=== PATIENT | female | born 1955 | race Hispanic/Latino ===

== ENCOUNTER 2023-06-27 11:27 | Emergency (ER) | payer OTHER ==
--- OUTSIDE RECORDS SUMMARY | 2023-06-27 11:30 | XMS REPORT | Continuity of Care Document ---
:1955 Author Organization [facility] t Address [address] [facility] [place] [address] Care Team Providers Name Role Phone EDITH SPARKS Primary Care Physician Unavailable Edith Sparks Attending Clinician Unavailable MARVIN MIRANDA Attending Clinician Unavailable Marvin Miranda MD Attending Clinician RADIOLOGY Attending Clinician Unavailable Radiology Attending Clinician Unavailable CE PINTO Attending Clinician Unavailable Ce Pinto MD Attending Clinician [phone] Doctor Unassigned, Jolly Attending Clinician Unavailable Melissa Narvaez Attending Clinician Unavailable MELISSA NARVAEZ Attending Clinician Unavailable Melissa Narvaez MD Attending Clinician Gustavo Martin MD Attending Clinician GUSTAVO MARTIN Attending Clinician Unavailable EMILY BERMAN Admitting Clinician Unavailable CE PINTO Admitting Clinician Unavailable EDITH SPARKS Admitting Clinician Unavailable KNOW, DOES_NOT Admitting Clinician Unavailable Payers Payer Name Policy Type Policy Number Effective Date Expiration Date S yari [facility] [id number] 2020 [place] 00:00:00 [place] [id number] 2020 [place] 00:00:00 [place] [id number] 2019 [facility] y[facility] ing Medicare 00:00:00 [place] [id number] 2019 Common Sp yeni ing Medicare 00:00:00 [facility] MEDICARE PART A [id number] 2020 \\T\\ B 00:00:00 Problems Condition Condition Condition Status Onset Resolution Last Treating Co mments Source Name Details Category Date Date Treatment Clinician Date [id number] Paresthesi Problem Co mmon a of both Spirit hands [facility] [id number] Mixed Problem Common hyperlipid Spirit emia [facility] [id number] GERD Problem Common without Spirit esophagiti - [facility] [id number] Essential Problem Comm on hypertensi Spirit on [facility] No known No known Disease Unive rs active active ity of problems problems [facility] Allergies, Adverse Reactions, Alerts Allergy Allergy Status Severity Reaction(s) Onset Inactive Treating Comm ents Source Name Type Date Date Clinician No Known DA Active U [facility] Allergie 3 Neetulan s 00:00: d 00 [facility] NO KNOWN Drug Active Univers ALLERGIE Class ity of S [facility] Social History Social Habit Start Date Stop Date Quantity Comments Source History of [facility] - Tobacco Use [facility] Sex Assigned At Common Sp yeni - [facility] Exposure to 2022-05-08 2022-05-18 Not sure University of SARS-CoV-2 00:00:00 20:30:00 [facility] (event) [place] Alcohol intake 2020-12-21 2020-12-21 Current University of 00:00:00 00:00:00 non-drinker of [facility] alcohol (finding) [place] Tobacco use and 2013-07-04 2013-07-04 Smokeless tobacco Un iversity of exposure 00:00:00 00:00:00 non-user [facility] Smoking Status Start Date Stop Date Source Never Smoker [facility] Medications Ordered Filled Start Stop Current Ordering Indication Dosage Frequency Signature Comments Components Source Medication Medication Date Date Medication? Clinician (SIG) Name Name dexamethaso 2021- No 6mg 6 mg, IV U nivers ne 05-19 Push, ity of (DECADRON 02:45: 02:04 [place] 00 :00 dose, On Medic al injection 6 Sun [place] mg 05/18/22 at 2145, Routine famotidine 2021- No 20mg 20 mg, Univ ers (PEPCID 05-19 Slow IV ity of (PF)) 01:45: 01:57 Push, [place] injection 00 :00 ONCE, 1 Medical 20 mg dose, On Branch 05/18/22 at 2045, BALTAZAR diphenhydrA 2021- No 12.5mg 12.5 mg, Univers MINE 05-19 Slow IV ity of (BENADRYL) 01:45: 01:56 Push, [place] injection 00 :00 ONCE, 1 Medical 12.5 mg dose, On [place] 05/18/22 at 2045, STAT methylPREDN Yes [id number] Take by Univers ISolone 4 9-11 mouth ity of mg tablets 00:00: SEE-INSTRU [place] 00 CTIONS. Medical follow Branch package directions loratadine Yes [id number] 10mg Take 1 Univers 10 mg 9-11 tablet by ity of tablet 00:00: mouth [place] 00 daily. Medical Branch Gabapentin Gabapentin No BID Gabapentin 100 MG 100 MG 8-01 100 MG 00:00: 00 Gabapentin Gabapentin No BID Gabapentin 100 MG 100 MG 04-07 100 MG 00:00: 00 Gabapentin Gabapentin No BID Gabapentin 100 MG 100 MG 04-07 100 MG 00:00: 00 Gabapentin Gabapentin No BID Gabapentin 100 MG 100 MG 04-07 100 MG 00:00: 00 iopamidol 2021- No [id number] 76mL 76 mL, U nivers (ISOVUE 04-01 Intravenou ity o f 370-500 mL) 02:30: 01:16 s, ONCE, 1 [place] injection 00 :00 dose, On Medica l 76 mL Mon Branch 03/31/22 at 2130, Routine ondansetron 2021- No 4mg 4 mg, Slow Univers (ZOFRAN 04-01 IV Push, ity of (PF)) 01:15: 01:26 ONCE, 1 [place] injection 4 00 :00 dose, On Medi david mg Thu03/31/22 at 2014, BALTAZAR FENTanyl PF No 50ug 50 mcg, Un param (SUBLIMAZE 04-01 Slow IV ity o f (PF)) 01:15: 01:27 Push, [place] injection 00 :00 ONCE, 1 Medical 50 mcg dose, On Branch 03/31/22 at 2014, STAT acetaminoph 2021- No 4647 1{tbl} Take 1 U nivers en-codeine 03-31 tablet by ity of (TYLENOL-CO 00:00: 04:59 [place] DEINE #3) 00 :00 every 4 Medical 300-30 mg (four) Branch tablet hours as needed for Pain (scale 4-6) for up to 7 days. Indication s: acute pain gadobenate 2021- No [id number] .2mL/kg 0.2 mL/kg, Univers dimeglumine 10-23 Intravenou i ty of (MULTIHANCE 21:45: 21:35 s, ONCE, 1 [place] -20 mL) 00 :00 dose, On Medical injection Wed Branch 0.2 mL/kg 10/23/21 at 1545, Routine iopamidol 2020-09- No [id number] 120mL 120 mL, Univers (ISOVUE 2-02 12- Intravenou ity o f 370-500 mL) 19:56: 20:00 s, ONCE, 1 [place] injection 00 :00 dose, On Medica l 120 mL Rossy Branch 08/08/21 at 1415, Routine maalox:diph 2020-0 2020- No 15mL 15 mL, Uni vers enhydrAMINE 16 04-16 Oral, ity of :lidocaine 07:00: 06:10 ONCE, 1 [place] as 2 % viscous 00 :00 dose, Fri Med ical 1:1:1 12/21/20 at Branch (FIRST-MOUT 0200, HWASH BLM) Routine oral suspension 15 mL pantoprazol 0 Yes [id number] 40mg Take 1 Univers e 4-16 tablet by ity of (PROTONIX) 00:00: mouth [place] 40 mg EC 00 daily. Medical tablet Branch pantoprazol 0 Yes [id number] 40mg Take 1 Univers e 4-16 tablet by ity of (PROTONIX) 00:00: mouth [place] 40 mg EC 00 daily. Medical tablet Branch pantoprazol 0 Yes [id number] 40mg Take 1 Univers e 4-16 tablet by ity of (PROTONIX) 00:00: mouth [place] 40 mg EC 00 daily. Medical tablet Branch pantoprazol 0 Yes [id number] 40mg Take 1 Univers e 4-16 tablet by ity of (PROTONIX) 00:00: mouth [place] 40 mg EC 00 daily. Medical tablet Branch pantoprazol 0 Yes [id number] 40mg Take 1 Univers e 4-16 tablet by ity of (PROTONIX) 00:00: mouth [place] 40 mg EC 00 daily. Medical tablet Branch pantoprazol 0 Yes [id number] 40mg Take 1 Univers e 4-16 tablet by ity of (PROTONIX) 00:00: mouth [place] 40 mg EC 00 daily. Medical tablet Branch pantoprazol 0 Yes [id number] 40mg Take 1 Univers e 4-16 tablet by ity of (PROTONIX) 00:00: mouth [place] 40 mg EC 00 daily. Medical tablet Branch pantoprazol 2020-0 Yes [id number] 40mg Take 1 Univers e 4-16 tablet by ity of (PROTONIX) 00:00: mouth [place] 40 mg EC 00 daily. Medical tablet Branch pantoprazol 2020-0 Yes [id number] 40mg Take 1 Univers e 4-16 tablet by ity of (PROTONIX) 00:00: mouth [place] 40 mg EC 00 daily. Medical tablet Branch pantoprazol 2020-0 Yes [id number] 40mg Take 1 Univers e 4-16 tablet by ity of (PROTONIX) 00:00: mouth [place] 40 mg EC 00 daily. Medical tablet Branch pantoprazol 2020-0 Yes [id number] 40mg Take 1 Univers e 4-16 tablet by ity of (PROTONIX) 00:00: mouth [place] 40 mg EC 00 daily. Medical tablet Branch pantoprazol 2020-0 Yes [id number] 40mg Take 1 Univers e 4-16 tablet by ity of (PROTONIX) 00:00: mouth [place] 40 mg EC 00 daily. Medical tablet Branch pantoprazol 2020-0 Yes [id number] 40mg Take 1 Univers e 4-16 tablet by ity of (PROTONIX) 00:00: mouth [place] 40 mg EC 00 daily. Medical tablet Branch pantoprazol 2020-0 Yes [id number] 40mg Take 1 Univers e 4-16 tablet by ity of (PROTONIX) 00:00: mouth [place] 40 mg EC 00 daily. Medical tablet Branch lisinopril Yes 10mg Take 10 mg U nivers 10 mg 9-25 by mouth ity of tablet 17:26: daily. [place] [address] Medical Branch lisinopril Yes 10mg Take 10 mg U nivers 10 mg 9-25 by mouth ity of tablet 12:26: daily. [place] [address] Medical Branch lisinopril Yes 10mg Take 10 mg U nivers 10 mg 9-25 by mouth ity of tablet 12:26: daily. [place] [address] Medical Branch lisinopril Yes 10mg Take 10 mg U nivers 10 mg 9-25 by mouth ity of tablet 12:26: daily. [place] [address] Medical Branch lisinopril 0 Yes 10mg Take 10 mg U nivers 10 mg 9-25 by mouth ity of tablet 12:26: daily. [place] [address] Medical Branch lisinopril Yes 10mg Take 10 mg U nivers 10 mg 9-25 by mouth ity of tablet 12:26: daily. [address] Branch lisinopril 2018- Yes 10mg Take 10 mg U nivers 10 mg 9-25 by mouth ity of tablet 12:26: daily. [address] Branch lisinopril 0 Yes 10mg Take 10 mg U nivers 10 mg 9-25 by mouth ity of tablet 12:26: daily. [address] lisinopril 2018-0 Yes 10mg Take 10 mg U nivers 10 mg 9-25 by mouth ity of tablet 12:26: daily. [address] Branch lisinopril Yes 10mg Take 10 mg U nivers 10 mg 9-25 by mouth ity of tablet 12:26: daily. [address] lisinopril Yes 10mg Take 10 mg U nivers 10 mg 9-25 by mouth ity of tablet 12:26: daily. [address] lisinopril Yes 10mg Take 10 mg U nivers 10 mg 9-25 by mouth ity of tablet 12:26: daily. [address] lisinopril Yes 10mg Take 10 mg U nivers 10 mg 9-25 by mouth ity of tablet 12:26: daily. [address] lisinopril 0 Yes 10mg Take 10 mg U nivers 10 mg 9-25 by mouth ity of tablet 12:26: daily. [address] Branch Lisinopril Lisinopril Yes Edith 1 tablet [facility] Lisinopril Lisinopril No 1{table QD Lisinopril 10 MG 10 MG t} 10 MG Pantoprazol Pantoprazol No 1{table Pantoprazo e Sodium 40 e Sodium 40 t} le Sodium MG MG 40 MG Lisinopril Lisinopril No 1{table QD Lisinopril 10 MG 10 MG t} 10 MG Pantoprazol Pantoprazol No 1{table Pantoprazo e Sodium 40 e Sodium 40 t} le Sodium MG MG 40 MG Lisinopril Lisinopril No 1{table QD Lisinopril 10 MG 10 MG t} 10 MG Pantoprazol Pantoprazol No 1{table Pantoprazo e Sodium 40 e Sodium 40 t} le Sodium MG MG 40 MG Pantoprazol Pantoprazol No 1{table Pantoprazo e Sodium 40 e Sodium 40 t} le Sodium MG MG 40 MG Lisinopril Lisinopril No 1{table QD Lisinopril 10 MG 10 MG t} 10 MG Pantoprazol Pantoprazol No 1{table Pantoprazo e Sodium 40 e Sodium 40 t} le Sodium MG MG 40 MG Lisinopril Lisinopril No 1{table QD Lisinopril 10 MG 10 MG t} 10 MG Pantoprazol Pantoprazol No 1{table Pantoprazo e Sodium 40 e Sodium 40 t} le Sodium MG MG 40 MG Lisinopril Lisinopril No 1{table QD Lisinopril 10 MG 10 MG t} 10 MG Pantoprazol Pantoprazol No 1{table Pantoprazo e Sodium 40 e Sodium 40 t} le Sodium MG MG 40 MG Lisinopril Lisinopril No 1{table QD Lisinopril 5 MG 5 MG t} 5 MG Mylanta Mylanta No Mylanta Lisinopril Lisinopril No 1{table QD Lisinopril 10 MG 10 MG t} 10 MG Pantoprazol Pantoprazol No 1{table Pantoprazo e Sodium 40 e Sodium 40 t} le Sodium MG MG 40 MG Mylanta Mylanta No Mylanta Lisinopril Lisinopril No 1{table QD Lisinopril 10 MG 10 MG t} 10 MG Pantoprazol Pantoprazol No 1{table Pantoprazo e Sodium 40 e Sodium 40 t} le Sodium MG MG 40 MG Mylanta Mylanta No Mylanta Lisinopril Lisinopril No 1{table QD Lisinopril 10 MG 10 MG t} 10 MG Pantoprazol Pantoprazol No 1{table Pantoprazo e Sodium 40 e Sodium 40 t} le Sodium MG MG 40 MG Mylanta Mylanta No Mylanta Lisinopril Lisinopril No 1{table QD Lisinopril 10 MG 10 MG t} 10 MG Pantoprazol Pantoprazol No 1{table Pantoprazo e Sodium 40 e Sodium 40 t} le Sodium MG MG 40 MG Lisinopril Lisinopril No Lisinopril 10 MG 10 MG 10 MG Mylanta Mylanta No Mylanta Pantoprazol Pantoprazol No 1{table Pantoprazo e Sodium 40 e Sodium 40 t} le Sodium MG MG 40 MG Vital Signs Vital Name Observation Time Observation Value Comments Source height 2022-08-04 11:20:00 65 [in_i] [facility] weight 2022-08-04 11:20:00 140 [lb_av] [facility] temperature 2022-08-04 11:20:00 98 [degF] [facility] bmi 2022-08-04 11:20:00 23.29 kg/m2 [facility] blood pressure 2022-08-04 11:20:00 105 mm[Hg] [facility] Spirit - systolic [facility] blood pressure 2022-08-04 11:20:00 70 mm[Hg] [facility] - diastolic [facility] Systolic blood 2022-05-19 03:49:00 119 mm[Hg] Univer sity of [facility] Diastolic blood 2022-05-19 03:49:00 77 mm[Hg] Unive rsity [facility] Heart rate 2022-05-19 03:49:00 59 /min [facility] Respiratory rate 2022-05-19 03:49:00 17 /min [facility] Oxygen saturation in 2022-05-19 03:49:00 98 /min [facility] blood by [facility] Pulse oximetry [place] Body temperature 2022-05-19 01:32:00 36.83 Elodia [facility] Body weight 2022-05-19 01:32:00 62.143 kg [facility] BMI 2022-05-19 01:32:00 25.06 kg/m2 [facility] height 2022-04-07 13:00:00 65 [in_i] [facility] weight 2022-04-07 13:00:00 137 [lb_av] [facility] 2022-04-07 13:00:00 22.8 kg/m2 [facility] Systolic blood 2022-04-01 03:00:00 109 mm[Hg] Univer sity of [facility] Diastolic blood 2022-04-01 03:00:00 84 mm[Hg] Unive rsity of pressure [facility] Heart rate 2022-04-01 03:00:00 63 /min [facility] Respiratory rate 2022-04-01 03:00:00 17 /min [facility] Oxygen saturation in 2022-04-01 03:00:00 97 /min [facility] Arterial blood by [facility] Pulse oximetry Branch Body temperature 2022-03-31 23:16:00 35.89 El[place] [facility] 2022-03-31 23:16:00 62.143 kg [facility] BMI 2022-03-31 23:16:00 25.06 kg/m2 [facility] height 2022-01-06 13:00:00 65 [in_i] Common [facility] weight 2022-01-06 13:00:00 136.5 [lb_av] [facility] temperature 2022-01-06 13:00:00 98.3 [degF] Common [facility] bmi 2022-01-06 13:00:00 22.71 kg/m2 [facility] oximetry 2022-01-06 13:00:00 98 % [facility] respiratory rate 2022-01-06 13:00:00 18 /min Comm on [facility] blood pressure 2022-01-06 13:00:00 138 mm[Hg] Common [facility] - systolic [facility] blood pressure 2022-01-06 13:00:00 64 mm[Hg] Common [facility] - diastolic [facility] height 2022-01-06 13:20:00 65 [in_i] Common [facility] weight 2022-01-06 13:20:00 136.5 [lb_av] [facility] temperature 2022-01-06 13:20:00 98.3 [degF] Common [facility] bmi 2022-01-06 13:20:00 22.71 kg/m2 Common [facility] oximetry 2022-01-06 13:20:00 98 % Common [facility] respiratory rate 2022-01-06 13:20:00 18 /min Comm on [facility] blood pressure 2022-01-06 13:20:00 138 mm[Hg] Common [facility] - systolic [facility] blood pressure 2022-01-06 13:20:00 64 mm[Hg] Common [facility] - diastolic [facility] height 2021-07-17 15:30:00 65 [in_i] [facility] weight 2021-07-17 15:30:00 145 [lb_av] [facility] temperature 2021-07-17 15:30:00 98 [degF] [facility] bmi 2021-07-17 15:30:00 24.13 kg/m2 Common [facility] blood pressure 2021-07-17 15:30:00 124 mm[Hg] Common [facility] - systolic [facility] blood pressure 2021-07-17 15:30:00 82 mm[Hg] Common [facility] - diastolic [facility] Systolic blood 2020-12-21 06:01:00 129 mm[Hg] Univer sity of [facility] Diastolic blood 2020-12-21 06:01:00 73 mm[Hg] Unive rsity of [facility] Heart rate 2020-12-21 06:01:00 64 /min [facility] Respiratory rate 2020-12-21 06:01:00 13 /min [facility] in 2020-12-21 06:01:00 99 /min [facility] Arterial blood by [facility] Pulse oximetry Branch Body temperature 2020-12-21 02:00:00 36.44 [place] [facility] Body height 2020-12-21 02:00:00 157.5 cm [facility] Body weight 2020-12-21 02:00:00 74.844 kg [facility] BMI 2020-12-21 02:00:00 30.18 kg/m2 [facility] Procedures Procedure Date / Time Performing Clinician Source Performed COMP. METABOLIC PANEL 2022-05-19 01:54:00 Marvin [facility] ([id number]) [facility] CBC WITH DIFF 2022-05-19 01:54:00 Marvin Miranda Holladay o f [facility] CONSENT/REFUSAL FOR 2022-05-19 01:25:33 Doctor Unassigned, [facility] DIAGNOSIS AND TREATMENT [facility] Medical Branch MR CERVICAL SPINE WO 2022-05-16 17:19:31 Requisition, Paper [facility] CONTRAST [facility] URINALYSIS 2022-04-01 01:33:00 Blair [facility] CT ANGIOGRAM HEAD 2022-04-01 01:25:35 Blair [facility] CT ANGIOGRAM NECK 2022-04-01 01:25:35 Blair [facility] CT CERVICAL SPINE WO 2022-04-01 01:22:41 Blair [facility] CONTRAST [facility] CT HEAD WO CONTRAST 2022-04-01 01:22:41 Blair [facility] XR CHEST 2 VW 2022-04-01 01:15:28 Blair [facility] TROPONIN I 2022-04-01 00:21:00 Blair [facility] COMP. METABOLIC PANEL 2022-04-01 00:21:00 [id number] CBC WITH DIFF 2022-04-01 00:21:00 Blair [facility] N-TERMINAL PRO-BNP 2022-04-01 00:21:00 Ce Pinto [facility] COVID-19 (ID NOW RAPID 2022-04-01 00:21:00 Ce Pinto [facility] TESTING) [facility] CONSENT/REFUSAL FOR 2022-03-31 23:05:01 Doctor Unasssam, [facility] DIAGNOSIS AND TREATMENT [facility] Medical Branch ASSIGNMENT OF BENEFITS 2022-03-19 20:12:10 Doctor Unassigned, [facility] EXTERNAL PROVIDER RECORDS 2022-01-10 05:01:00 Doctor Willis, [facility] J[facility] Medical Branch MR PELVIS W WO CONTRAST 2021-10-23 21:18:00 [facility] [place] US PELVIS COMPLETE WITH 2021-10-23 19:40:05 [facility] TRANSVAGINAL Medical Branch CONSENT/REFUSAL FOR 2021-10-23 18:58:50 Doctor Unacathie, [facility] DIAGNOSIS AND TREATMENT [facility] Branch ASSIGNMENT OF BENEFITS 2021-10-23 18:58:30 Doctor Willis, [facility] NOTICE OF PRIVACY 2021-10-23 18:58:10 Doctor Unacathie, [facility] PRACTICES [facility] Branch CONSENT/REFUSAL FOR 2021-10-23 18:57:51 Doctor Willis, [facility] DIAGNOSIS AND TREATMENT [facility] ASSIGNMENT OF BENEFITS 2021-10-23 18:57:24 Doctor [facility]asssam, [facility] US RETROPERITONEAL LIMITED 2021-08-20 23:24:49 Requisition, Jose F purdy [facility] ASSIGNMENT OF BENEFITS 2021-08-20 22:15:26 Doctor Unassigned, [facility] HB CREATININE BLOOD 2021-08-08 19:53:00 [facility] Medical [place] CONSENT/REFUSAL FOR 2021-08-08 19:28:02 Doctor Willis, [facility] DIAGNOSIS AND TREATMENT [place] [facility] Branch ASSIGNMENT OF BENEFITS 2021-08-08 19:27:23 Doctor Willis, [facility] XR CHEST 1 VW 2020-12-21 02:31:41 Gustavo Martin [facility] Medical Branch LIPASE 2020-12-21 02:21:00 Gustavo Martin [facility] TROPONIN I 2020-12-21 02:21:00 Gustavo Martin [facility] COMP. METABOLIC PANEL 2020-12-21 02:21:00 Gustavo Martin [facility] ([id number]) Medical [place] CBC WITH DIFF 2020-12-21 02:21:00 Gustavo Martin [facility] PROTHROMBIN TIME / INR 2020-12-21 02:21:00 Gustavo Martin [facility] ACTIVATED PARTIAL THRMPLAS 2020-12-21 02:21:00 Gustavo Martin [facility] COVID-19 (ID NOW RAPID 2020-12-21 02:21:00 Gustavo Martin [facility] TESTING) Medical Branch NOTICE OF PRIVACY 2020-12-21 01:55:56 Doctor Unasssam, [facility] PRACTICES [facility] Medical Branch CONSENT/REFUSAL FOR 2020-12-21 01:55:40 Doctor Unasssam, [facility] DIAGNOSIS AND TREATMENT Jolly [facility] Encounters Start End Encounter Admission Attending Care Care Encounter Source Date/Time Date/Time Type Type Clinicians Facility Department ID 2022-12-31 Outpatient Sparks, STLMLC STLMLC [id number] Common 08:03:00 [facility] 2022-08-14 Outpatient Sparks, STLMLC STLMLC [id number] Common 16:20:01 [facility] 2022-07-30 Outpatient Sparks, STLMLC STLMLC [id number] Common 08:18:00 [facility] 2022-07-11 Outpatient Sparks, STLMLC STLMLC [id number] Common 16:22:00 Edith [facility] 2022-07-10 Outpatient Sparks, STLMLC STLMLC [id number] Common 11:46:03 [facility] 2022-04-15 Outpatient Sparks, STLMLC STLMLC [id number] Common 13:34:01 [facility] 2022-04-09 Outpatient Sparks, STLMLC STLMLC [id number] Common 10:27:01 Edith [facility] 2022-04-08 Outpatient Sparks, STLMLC STLMLC [id number] Common 12:06:00 Edith [facility] 2022-04-04 Outpatient Sparks, STLMLC STLMLC [id number] Common 16:32:00 Edith [facility] 2022-04-02 Outpatient Sparks, STLMLC STLMLC [id number] Common 13:54:00 Edith [facility] 2022-01-07 Outpatient Sparks, STLMLC STLMLC [id number] Common 13:15:05 Edith [facility] 2021-10-02 Outpatient Sparks, STLMLC STLMLC [id number] Common 14:28:59 Edith [facility] 2021-10-02 Outpatient Sparks, STLMLC STLMLC [id number] Common 13:02:21 Edith [address] [facility] 2021-10-02 Outpatient Sparks, STLMLC STLMLC [id number] Common 12:27:16 Edith [facility] 2021-10-02 Outpatient Sparks, STLMLC STLMLC [id number] Common 12:24:03 Edith [address] [facility] 2021-10-02 Outpatient Sparks, STLMLC STLMLC [id number] Common 11:58:54 Edith [address] [facility] 2021-10-02 Outpatient Sparks, STLMLC STLMLC [id number] Common 11:52:15 Edith [address] [facility] 2021-10-02 Outpatient Sparks, STLMLC STLMLC [id number] Common 11:29:54 Edith [address] [facility] 2021-10-02 Outpatient Sparks, STLMLC STLMLC [id number] Common 11:25:26 Edith [address] [facility] 2022-08-04 2022-08-04 OFFICE STLMLC STLMLC [id number] Co mmon 00:00:00 00:00:00 VISIT Spirit ESTAB PT - CHI LEVEL 4 [facility] 2022-07-11 2022-07-11 (TEL) STLMLC STLMLC [id number] Co mmon 00:00:00 00:00:00 [facility] - [facility] 2022-05-18 2022-05-18 Emergency X RUBEN RUST ERT [id number] Univers 20:47:00 22:53:00 MARVIN [facility] 2022-05-18 2022-05-18 [facility] [id number] Univers 20:47:00 22:53:00 Marvin NORTON [id number] i ty [facility] [id number] [facility] [id number] [facility] 084 Branch 2022-05-16 2022-05-16 Outpatient R RADIOLOGY [facility] [id number] Univers 11:39:52 23:59:00 ity [facility] 2022-05-16 2022-05-16 Hospital Radiology RUST [id number] Univers 11:39:52 23:59:00 Encounter CI[id number] [facility] [id number] [facility] [id number] [facility] 804 Branch 2022-04-08 2022-04-08 (TEL) STLMLC STLMLC [id number] Co mmon 00:00:00 00:00:00 Spirit - [facility] 2022-04-07 2022-04-07 OFFICE STLMLC STLMLC [id number] Co mmon 00:00:00 00:00:00 VISIT [facility] PT - CHI LEVEL 4 [facility] 2022-03-31 2022-03-31 Emergency X AUFDERIDE RUST ERT [id number] Univers 18:25:00 22:40:00 , CE ity [facility] 2022-03-31 2022-03-31 [facility] 1.2.840.114 [id number] Univers 18:25:00 22:40:00 , Ce CIERRA 350.1.13.10 i ty of Cornelius AMBROSIO 4.2.7.2.686 [facility] [phone] [facility] [address] 2022-03-31 2022-03-31 Orders Doctor KRISTINE 1.2.840.114 [id number] Univers 00:00:00 00:00:00 Only Unassigned, JEFFREY 350.1.13.10 ity of [place] [facility] 4.2.7.2.686 Richard as [phone] [facility] [address] 2022-03-27 2022-03-27 (TEL) [facility] [id number] Co mmon 00:00:00 00:00:00 [facility] 2022-03-19 2022-03-19 Outpatient R RADIOLOGY [facility] [id number] Univers 15:18:52 23:59:00 ity of [facility] 2022-03-19 2022-03-19 Hospital Radiology RUST 1.2.840.114 [id number] Univers 15:00:00 23:59:00 Encounter CIERRA 350.1.13.10 ity of [place] 4.2.7.2.686 [facility] [phone] [facility] [address] 2022-03-19 2022-03-19 Orders Doctor CARMONA 1.2.840.114 [id number] Univers 00:00:00 00:00:00 Only Unassigned, JEFFREY 350.1.13.10 ity [facility] [place] [facility] 4.2.7.2.686 Richard as [phone] [facility] [address] 2022-01-10 2022-01-10 Orders Doctor KRISTINE 1.2.840.114 [id number] Univers 00:00:00 00:00:00 Only Unassigned, JEFFREY 350.1.13.10 ity [facility] [place] [facility] 4.2.7.2.686 Richard as [phone] [facility] [address] 2022-01-06 2022-01-06 [facility] [id number] Co mmon 00:00:00 00:00:00 VISIT Spirit ESTAB PT - CHI LEVEL 4 [facility] 2022-01-06 2022-01-06 SUB ANNUAL STLMLC STLMLC [id number] Common 00:00:00 00:00:00 MCR Spirit WELLNESS - CHI VISIT [facility] 2021-12-05 2021-12-05 Outpatient [facility] [id number] [facility] 05:44:00 05:44:00 Melissa Omid [facility] 2021-10-31 2021-10-31 (TEL) STLMLC STLMLC [id number] Co mmon 00:00:00 00:00:00 Spirit - CHI [facility] 2021-10-23 2021-10-23 Outpatient Reinier NARVAEZ [facility] [id number] Univers 13:00:00 23:59:00 MELISSA ity [facility] 2021-10-23 2021-10-23 [facility] 1.2.840.114 [id number] Univers 13:00:00 23:59:00 Encounter Melissa [place] 350.1.13.10 ity of [place] 4.2.7.2.686 [facility] [phone] [facility] 8[address] 2021-10-23 2021-10-23 [facility] 1.2.840.114 [id number] Univers 12:59:32 12:59:32 Encounter Melissa [place] 350.1.13.10 ity of [place] 4.2.7.2.686 [facility] [id number] [facility] 8[address] 2021-09-10 2021-09-10 (TEL) STLC STLMLC [id number] Co mmon 00:00:00 00:00:00 Spirit - CHI [facility] 2021-08-20 2021-08-20 Hospital Radiology RUST 1.2.840.114 [id number] Univers 16:20:41 23:59:00 Encounter [place] 350.1.13.10 ity of [place] 4.2.7.2.686 [facility] [id number] [facility] 8[address] 2021-08-20 2021-08-20 Hospital Radiology [place] 1.2.840.114 [id number] Univers 16:17:17 16:19:00 Encounter [place] 350.1.13.10 ity of [place] 4.2.7.2.686 [facility] [phone] [facility] [address] 2021-08-20 2021-08-20 Outpatient R RADIOLOGY [facility] [id number] Univers 16:17:16 16:19:00 ity of [facility] 2021-08-20 2021-08-20 Orders Doctor KRISTINE 1.2.840.114 [id number] Univers 00:00:00 00:00:00 Only Unassigned, JEFFREY 350.1.13.10 ity of [place] [facility] 4.2.7.2.686 [facility] [phone] [facility] [address] 2021-08-13 2021-08-13 (TEL) STLMLC STLMLC [id number] Co mmon 00:00:00 00:00:00 [facility] 2021-08-08 2021-08-08 Outpatient R RADIOLOGY [facility] [id number] Univers 13:31:45 23:59:00 ity of [facility] 2021-08-08 2021-08-08 [facility] Radiology [place]UST 1.2.840.114 [id number] Univers 13:31:45 23:59:00 Encounter [place] 350.1.13.10 ity of [place] 4.2.7.2.686 [facility] [id number] [facility] [address] 2021-07-17 2021-07-17 (TEL) STLMLC STLMLC [id number] Co mmon 00:00:00 00:00:00 [facility] 2021-07-17 2021-07-17 OFFICE STLMLC STLMLC [id number] Co mmon 00:00:00 00:00:[address] [facility] LEVEL 4 [facility] 2021-04-22 2021-04-22 Outpatient STLMLC STLMLC [id number] Common 00:00:00 00:00:00 [facility] 2021-01-18 2021-01-18 Outpatient STLMLC STLMLC [id number] Common 00:00:00 00:00:00 [facility] 2021-01-17 2021-01-17 Outpatient STLMLC STLMLC [id number] Common 00:00:00 00:00:00 [facility] 2021-01-17 2021-01-17 Outpatient STLMLC STLMLC [id number] Common 00:00:00 00:00:00 [facility] 2021-01-14 2021-01-14 Outpatient STLMLC STLMLC [id number] Common 00:00:00 00:00:00 [facility] 2021-01-14 2021-01-14 Outpatient STLMLC STLMLC [id number] Common 00:00:00 00:00:00 [facility] 2020-12-20 2020-12-21 Emergency [facility] [id number] [id number] Univers 21:10:00 01:19:00 Gustavo Shanks [place] 350.1.13.10 genaro [facility] 4.2.7.2.686 [facility] [phone] [place] [address] Branch 2020-12-21 2020-12-21 Outpatient STLMLC STLMLC [id number] Common 00:00:00 00:00:00 [facility] 2020-12-20 2020-12-20 Emergency X [facility] [id number] Univers 21:10:00 21:10:00 GUSTAVO lam [facility] 2020-10-17 2020-10-17 Outpatient STLMLC STLMLC [id number] Common 00:00:00 00:00:00 [facility] 2020-09-27 2020-09-27 Outpatient STLMLC STLMLC [id number] Common 00:00:00 00:00:00 [facility] 2020-07-03 2020-07-03 Outpatient STLMLC STLMLC [id number] Common 00:00:00 00:00:00 [facility] 2020-06-06 2020-06-06 Outpatient STLMLC STLMLC [id number] Common 00:00:00 00:00:00 [facility] 2020-02-13 2020-02-13 Outpatient Ajay Mosst 30 [id number] Common 15:30:00 15:30:[address] [facility] Results Test Description Test Time Test Comments Results Result Comments Source COMP. METABOLIC PANEL (91663) 2022-05-19 02:51:06 Test Item Value Reference Range Interpretation Comme nts NA (test code = 9329938215) 141 mmol/L 135-145 K (test code = 9461771266) 4.8 mmol/L 3.5-5 CL (test code = 9742310305) 108 mmol/L 98-108 CO2 TOTAL (test code = 6866684177) 26 mmol/L 23-31 AGAP (test code = 2337093781) 2-16 BUN (test code = 2731778713) 26 mg/dL 7-23 H GLUCOSE (test code = 3732721763) 95 mg/dL 70-110 CREATININE (test code = 0.99 mg/dL 0.5-1.04 6349642306) TOTAL BILI (test code = 1.4 mg/dL 0.1-1.1 H 4246754882) CALCIUM (test code = 3380213693) 8.8 mg/dL 8.6-10.6 T PROTEIN (test code = 3082625824) 7.0 g/dL 6.3-8.2 ALBUMIN (test code = 3820832369) 4.5 g/dL 3.5-5 ALK PHOS (test code = 0425274461) 80 U/L 34-122 ALTv (test code = 1742-6) 15 U/L 5-35 AST(SGOT) (test code = 4256171154) 16 U/L 13-40 eGFR (test code = 1105648344) mL/min/1.73m2 CRISTIANE (test code = CRISTIANE) Association of Glomerular Filtration Rate (GFR) and Staging of Kidney Disease* + +-------- + ------+| GFR (mL/min/1.73 m2) ?| With Kidney Damage ?| ?Without Kidney Damage+ +-- + +| ?>90 ?| ?Stage one ?| ? Normal ?+ +------- + -------+| ?60-89 ?| ?Stage two ?| ? Decreased GFR ? + +-------- + ------+| ?30-59 ?| ?Stage three ?| ? Stage three ? + +-------- + ------+| ?15-29 ?| ?Stage four ? | ? Stage four ?+ +------- + -------+| ?<15 (or dialysis) ? ?| ?Stage five ? | ? Stage five ?+ +------- + -------+ *Each stage assumes the associated GFR level has been in effect for at least three months. ?Stages 1 to 5, with or without kidney disease, indicate chronic kidney disease. Notes: Determination of stages one and two (with eGFR >59mL/min/1.73 m2) requires estimation of kidney damage for at least three months as defined by structural or functional abnormalities of the kidney, manifested by either:Pathological abnormalities or Markers of kidney damage (including abnormalities in the composition of the blood or urine or abnormalities in imaging tests). Lab Interpretation (test code = Abnormal 38108-0) [facility] WITH [id number] 02:35:48 Test Item Value Reference Range Interpretation Comments WBC (test code = See_Comment [Automated 0249-2) message] The sy stem which generated this result transmitted reference range : 4.30 - 11.10 10*3/?L. The reference range was not used to interpret this result as normal/abnormal . RBC (test code = See_Comment [Automated 569-8) message] The sy stem which generated this result transmitted reference range : 3.93 - 5.25 10*6/?L. The reference range was not used to interpret this result as normal/abnormal . HGB (test code = 14.7 g/dL 11.6-15 718-7) HCT (test code = 44.1 % 35.7-45.2 4544-3) MCV (test code = 89.1 fL 80.6-95.5 787-2) MCH (test code = 29.7 pg 25.9-32.8 785-6) MCHC (test code = 33.3 g/dL 31.6-35.1 786-4) RDW-SD (test code = 42.4 fL 39-49.9 69342-5) RDW-CV (test code = 13.1 % 12-15.5 788-0) PLT (test code = See_Comment [Automated 777-3) message] The sy stem which generated this result transmitted reference range : 166 - 358 10*3/ ?L. The reference r rafal was not used to interpret this result as normal/abnormal . MPV (test code = 9.1 fL 9.5-12.9 L 83611-0) NRBC/100 WBC (test See_Comment [Automat ed code = 2992368725) message] The system which generated this result transmitted reference range : 0.0 - 10.0 /100 WBCs. The refer ence range was not u sed to interpret th is result as normal/abnormal . NRBC x10^3 (test code See_Comment [Auto mated = 6859243422) message] The s ystem which generated this result transmitted reference range : 10*3/?L. The reference range was not used to interpret this result as normal/abnormal . GRAN MAT (NEUT) % 55.1 % (test code = 770-8) IMM GRAN % (test code 0.20 % = 1794191666) LYMPH % (test code = 36.2 % 736-9) MONO % (test code = 6.8 % 5905-5) EOS % (test code = 1.2 % 713-8) BASO % (test code = 0.5 % 706-2) GRAN MAT x10^3(ANC) 4.89 10*3/uL 1.88-7.09 (test code = 8303997409) IMM GRAN x10^3 (test 0-0.06 code = 0443473938) LYMPH x10^3 (test code 3.21 10*3/uL 1.32-3.29 = 731-0) MONO x10^3 (test code 0.60 10*3/uL 0.33-0.92 = 742-7) EOS x10^3 (test code = 0.11 10*3/uL 0.03-0.39 711-2) BASO x10^3 (test code 0.04 10*3/uL 0.01-0.07 = 704-7) Lab Interpretation Abnormal (test code = 71215-0) [facility] [id number] 01:04:54 Test Item Value Reference Interpretation Comments Range TROPONIN I (test 0.001 ng/mL See_Comment [Automated code = 7345572863) message] The system which generated this result transmitted reference range : <=0.034. The reference range was not used to interpret this result as normal/abnormal . CRISTIANE (test code = Reference (Normal) CRISTIANE) Range (defined by the 99th percentile reference limit): <= 0.034 ng/mL Note: Cardiac troponin begins to rise 3-4 hours after the onset of ischemia. Repeat in 4-6 hours if the sample was drawn within 3-4 hours of the onset of the symptom and found normal. Diagnosis of myocardial injury is made with acute changes in cTn concentrations with at least one serial sample above the 99th percentile upper reference limit (URL), taken together with the patient's clinical presentation. Biotin has been reported to cause a negative bias, interpret results relative to patient's use of biotin. Lab Interpretation Normal (test code = 52163-8) [facility] [id number] 01:01:36 Test Item Value Reference Range Interpretation Comments NT-proBNP (test code 24 pg/mL See_Comment [Autom ated = 0594106160) message] The system which generated this result transmitted reference range : <=125. The reference range was not used to interpret this result as normal/abnormal . CRISTIANE (test code = CRISTIANE) Biotin has been reported to cause a negative bias, interpret results relative to patient's use of biotin. Lab Interpretation Normal (test code = 03080-8) [facility] (02702)2022-04-01 00:52:59 Test Item Value Reference Range Interpretation Comments NA (test code = 141 mmol/L 135-145 4009614800) K (test code = 4.1 mmol/L 3.5-5 2702917578) CL (test code = 105 mmol/L 98-108 1163112448) CO2 TOTAL (test code = 27 mmol/L 23-31 5233743319) AGAP (test code = 2-16 4698557238) BUN (test code = 15 mg/dL 7-23 7043967625) GLUCOSE (test code = 91 mg/dL 70-110 3954838160) CREATININE (test code = 0.83 mg/dL 0.5-1.04 4897897187) TOTAL BILI (test code = 2.2 mg/dL 0.1-1.1 H 9279492474) CALCIUM (test code = 9.4 mg/dL 8.6-10.6 0902991655) T PROTEIN (test code = 7.7 g/dL 6.3-8.2 4534195437) ALBUMIN (test code = 4.6 g/dL 3.5-5 2662501581) ALK PHOS (test code = 74 U/L 34-122 1252016127) ALTv (test code = 18 U/L 5-35 2-6) AST(SGOT) (test code = 18 U/L 13-40 9172260526) eGFR (test code = mL/min/1.73m2 2569096748) CRISTIANE (test code = CRISTIANE) Association of Glomerular Filtration Rate (GFR) and Staging of Kidney Disease* + --+ --+ ------+| GFR (mL/min/1.73 m2) ?| With Kidney Damage ?| ?Without Kidney Damage+ --------+ --------+ +| ?>90 ?| ?Stage one ?| ? Normal ?+ ---+ ---+ -------+| ?60-89 ?| ?Stage two ?| ? Decreased GFR ? + --+ --+ ------+| ?30-59 ?| ?Stage three ?| ? Stage three ? + --+ --+ ------+| ?15-29 ?| ?Stage four ? | ? Stage four ?+ ---+ ---+ -------+| ?<15 (or dialysis) ? ?| ?Stage five ? | ? Stage five ?+ ---+ ---+ -------+ *Each stage assumes the associated GFR level has been in effect for at least three months. ?Stages 1 to 5, with or without kidney disease, indicate chronic kidney disease. Notes: Determination of stages one and two (with eGFR >59mL/min/1.73 m2) requires estimation of kidney damage for at least three months as defined by structural or functional abnormalities of the kidney, manifested by either:Pathological abnormalities or Markers of kidney damage (including abnormalities in the composition of the blood or urine or abnormalities in imaging tests). Lab Interpretation Abnormal (test code = 03879-8) [facility] WITH [id number] 00:43:51 Test Item Value Reference Range Interpretation Comments WBC (test code = See_Comment [Automated 6690-2) message] The sy stem which generated this result transmitted reference range : 4.30 - 11.10 10*3/?L. The reference range was not used to interpret this result as normal/abnormal . RBC (test code = See_Comment H [Automated 789-8) message] The sy stem which generated this result transmitted reference range : 3.93 - 5.25 10*6/?L. The reference range was not used to interpret this result as normal/abnormal . HGB (test code = 15.8 g/dL 11.6-15 H 718-7) HCT (test code = 46.7 % 35.7-45.2 H 4544-3) MCV (test code = 88.1 fL 80.6-95.5 787-2) MCH (test code = 29.8 pg 25.9-32.8 785-6) MCHC (test code = 33.8 g/dL 31.6-35.1 786-4) RDW-SD (test code = 40.7 fL 39-49.9 60024-1) RDW-CV (test code = 12.4 % 12-15.5 788-0) PLT (test code = See_Comment [Automated 777-3) message] The sy stem which generated this result transmitted reference range : 166 - 358 10*3/ ?L. The reference r rafal was not used to interpret this result as normal/abnormal . MPV (test code = 8.8 fL 9.5-12.9 L 88368-0) NRBC/100 WBC (test See_Comment [Automat ed code = 1303241673) message] The system which generated this result transmitted reference range : 0.0 - 10.0 /100 WBCs. The refer ence range was not u sed to interpret th is result as normal/abnormal . NRBC x10^3 (test code See_Comment [Auto mated = 3913817952) message] The s ystem which generated this result transmitted reference range : 10*3/?L. The reference range was not used to interpret this result as normal/abnormal . GRAN MAT (NEUT) % 57.1 % (test code = 770-8) IMM GRAN % (test code 0.30 % = 0065906886) LYMPH % (test code = 35.6 % 736-9) MONO % (test code = 6.0 % 5905-5) EOS % (test code = 0.5 % 713-8) BASO % (test code = 0.5 % 706-2) GRAN MAT x10^3(ANC) 5.01 10*3/uL 1.88-7.09 (test code = 1031733124) IMM GRAN x10^3 (test 0.03 10*3/uL 0-0.06 code = 2706239059) LYMPH x10^3 (test code 3.12 10*3/uL 1.32-3.29 = 731-0) MONO x10^3 (test code 0.53 10*3/uL 0.33-0.92 = 742-7) EOS x10^3 (test code = 0.04 10*3/uL 0.03-0.39 711-2) BASO x10^3 (test code 0.04 10*3/uL 0.01-0.07 = 704-7) Lab Interpretation Abnormal (test code = 43870-3) [facility] 16:34:00 Test Item Value Reference Range Interpretation Comments SURGICAL (test code = SR) RUN DATE: 12/10/21 [facility] - LAB PAGE 1 RUN TIME: 1635 Specimen Inquiry RUN USER: INTERFACE NORA ENT: YVONNE DURAN LOC: ROBERTA U #: [id number] AGE/SX: 66/F ROOM: RE12/05/21REG DR: Melissa Narvaez : 53 BED: DIS: STATUS: [facility] TLOC: SPEC #: [id number] RECD: 12/06/21 STATUS: [facility] #: [id number] BONY: 12/05/[address] [facility] [address]: Melissa Narvaez MD ENTERED: 12/06/21 SP TYPE: SURGICAL OTHR DR: Juan Antonio Sparks MD ORDERED: 18785, ANATOMIC SPEC, SPECIMEN TRACK COPIES TO: Melissa Narvaez MD [address] [place] [address] [phone] Juan Antonio Sparks MD [address] [place] [address] [phone] PROCEDURES: 87799 (12/10/215645) SPECIMEN TRACK (12/06/21) TISSUES: BARTHOLIN - LEFT BARTHOLIN GLAND CYST FINAL DIAGNOSIS Vagina, left side, cyst, excision;- Bartholin's gland cyst GROSS DESCRIPTION Left Bartholin's gland cyst. Received is a landry-pink tissue fragment with cauterizedsurface measuring 3.5 x 2.3 x 2.2 cm. It is sectioned to reveal a gelatinous cysticcenter. Sections submitted as A1. Technical component performed at [id number] , [place] [address] Unless gross only, the diagnosis is based upon microscopic examination.Immunohistochemistry : This test was developed and its performancecharacteristics determined by this laboratory. It has not been approved nordoes it need approval by the [place] FDA. Appropriate positive and negative controlsare reviewed and judged to be acceptable. This laboratory is certified underthe Clinical Laboratory Improvement Amendments (CLIA-88) as qualified toperform high complexity clinical laboratory testing. CONTINUED ON NEXT PAGE RUN DATE: 12/10/21 [facility] PAGE 2 RUN TIME: 1635 Specimen Inquiry RUN USER: INTERFACE SPEC #: [id number] PATIENT: YVONNE DURAN #[id number] (Continued) ------- MICROSCOPIC DESCRIPTION Histopathological findings are incorporated into the diagnosis/comment sections. ----- Signed SIGNATURE ON RUSSEL Salgado Ma 12/10/21 1634 END OF REPORT COVID 19 INHOUSE [id number] 07:24:00 Test Item Value Reference Range Interpretation Comments COVID 19 INHOUSE AG NEGATIVE Negative Per [facility] facturer, (test code = negative result s should [id number]) be treated aspr esumptive and, if inconsi stent with clinical signs andsymptoms or necessary for patient man agement, should betested with an alternative mol ecular assay. Negative resultsdo not preclude SA RS-CoV-2 infection and s hould not be usedas the s ole basis for patient man agement decisions. Nega tive results should be considered in t he context of apatient's r ecent exposures, hist ory, presence of cli nicalsigns and symptoms co nsistent with COVID-19. CBC W/AUTO [id number] 07:20:00 Test Item Value Reference Range Interpretation Comments WHITE BLOOD CELL (test code = 8.9 K/mm3 3.5-11.0 N WBC) RED BLOOD CELL (test code = 5.30 M/mm3 4.70-6.10 N RBC) HEMOGLOBIN (test code = HGB) 15.9 G/DL 10.4-14.9 H HEMATOCRIT (test code = HCT) 48.1 % 31.5-44.1 H MEAN CELL VOLUME (test code = 90.8 Fl 84.5-98.6 N MCV) MEAN CELL HGB (test code = MCH) 30.0 pg 27.0-34.2 N MEAN CELL HGB CONCETRATION 33.1 G/DL 31.5-34.0 N (test code = MCHC) RED CELL DISTRIBUTION WIDTH 12.8 SD 11.5-14.5 N (test code = RDW) PLATELET COUNT (test code = 296 K/mm3 150-450 N PLT) MEAN PLATELET VOLUME (test code 8.50 fL 7.0-10.5 N = MPV) NEUTROPHIL % (test code = NT%) 58.0 % 40-76 N IMMATURE GRANULOCYTE % (test 0.1 % 0.0-5.0 N code = IG%) LYMPHOCYTE % (test code = LY%) 35.1 % 20.5-51.1 N MONOCYTE % (test code = MO%) 5.9 % 1.7-9.3 N EOSINOPHIL % (test code = EO%) 0.3 % 0.0-6.0 N BASOPHIL % (test code = BA%) 0.6 % 0.0-2.0 N NUCLEATED RBC % (test code = 0.0 /100WBC% 0.0-1.0 N NRBC%) NEUTROPHIL # (test code = NT#) 5.2 K/mm3 1.8-7.6 N IMMATURE GRANULOCYTE # (test 0.01 x10 3/uL 0.00-0.03 N code = IG#) LYMPHOCYTE # (test code = LY#) 3.1 K/mm3 0.6-3.2 N MONOCYTE # (test code = MO#) 0.5 K/mm3 0.3-1.1 N EOSINOPHIL # (test code = EO#) 0.0 K/mm3 0.0-0.4 N BASOPHIL # (test code = BA#) 0.1 K/mm3 0.0-0.1 N NUCLEATED RBC # (test code = 0.0 K/mm3 0.0-0.1 N NRBC#) MANUAL DIFF REQUIRED (test code NO DIFF/SCN CRITERIA = MDIFF) - XR CHEST 1 [id number] 06:45:00 [facility] Y[facility] : 1955 Sex: F Name: YVONNE DURAN [place] : 1955 Age/S: 66 / F [address] [address] [facility] Unit #: [id number] Loc: [place] [address] Phys: Melissa Narvaez MD Acct: [id number] Dis Date: Status: REG [facility] PHONE#: [phone] Exam Date: 12/05/2021 0640 FAX #: Reason: PREOP EXAMS: CPT: [id number] XR CHEST 1 V 96173 Fluoro Time: DAP (Gy m2): Air Kerma (mGy): EXAMINATION: - XR CHEST 1 V HISTORY: Preop COMPARISON: None. LOCATION CODE: C3 FINDINGS: Single frontal view of the chest is submitted for evaluation. The lungs are clear. The cardiac silhouette, mediastinum and pulmonary vasculature are unremarkable. The regional osseous structures are intact IMPRESSION: No acute radiographic abnormality at 0645 Reported and signed by: Dawna Kraus M.D.CC: Melissa Narvaez MD; Juan Antonio Sparks MD PAGE 1 Signed Report Name: YVONNE DURAN [place] : 1955 Age/S: 66 / F [address] [place] [address] Unit #: [id number] Loc: [place] [address] Phys: Melissa Narvaez MD Acct: [id number] Dis Date: Status: REG [facility] PHONE #: [phone] Exam Date: 12/05/2021 0640 FAX #: Reason: PREOP EXAMS: CPT: [id number] XR CHEST 1 V 86298 Fluoro Time: DAP (Gy m2): Air Kerma (mGy): (Continued) Technologist: Rafael Car, RT(R)(CT) Trnscb Date/Time: 0 12/05/2021 (0645) [email or web address] Orig Print D/T: S: 12/05/2021 (0648) PAGE 2 Signed ReportPOCT [id number] 01:07:04 Test Item Value Reference Range Interpretation Comments POCT Creatinine (test code = 0.8 mg/dL 0.5-1.0 8178640884) Lab Interpretation (test code = Normal 76029-4) [facility] [id number] 02:59:14 Test Item Value Reference Range Interpretation Comments TROPONIN I (test 0.001 ng/mL See_Comment [Automated code = 2741007283) message] The system which generated this result transmitted reference range : <=0.034. The reference range was not used to interpret this result as normal/abnormal . CRISTIANE (test code = Equal or Less than CRISTIANE) 0.034 ng/ml---Normal ?Note: Cardiac troponin begins to rise 3-4 hours after the onset of ischemia. Repeat in 4-6 hours if the sample was drawn within 3-4 hours of the onset of the symptom and found normal. Between 0.035 and 0.120 ng/mL--- Borderline. Questionable myocardial injury or necrosis ? ?Note: Serial measurement may be necessary to confirm or exclude the diagnosis of myocardial injury or necrosis; Clinical correlation (symptoms, EKGs, imaging studies, and others) required; Repeat in 4-6 hours if clinically indicated. ? Equal or Higher than 0.121 ng/mL---Abnormal. Myocardial Injury or Necrosis Likely ? Biotin has been reported to cause a negative bias, interpret results relative to patient's use of biotin. ? Lab Interpretation Normal (test code = 12195-2) [facility]OL[facility] ([id number])2020-12-21 02:46:30 Test Item Value Reference Range Interpretation Comments NA (test code = 143 mmol/L 135-145 5870910586) K (test code = 4.0 mmol/L 3.5-5.0 0761252666) CL (test code = 108 mmol/L 98-108 8056401186) CO2 TOTAL (test code = 26 mmol/L 23-31 1727545266) AGAP (test code = 2-16 3302871271) BUN (test code = 11 mg/dL 7-23 9786954909) GLUCOSE (test code = 108 mg/dL 70-110 8867722721) CREATININE (test code = 0.83 mg/dL 0.50-1.04 4734090381) TOTAL BILI (test code = 2.2 mg/dL 0.1-1.1 H 3611194806) CALCIUM (test code = 9.4 mg/dL 8.6-10.6 6854334251) T PROTEIN (test code = 8.8 g/dL 6.3-8.2 H 4814484254) ALBUMIN (test code = 4.7 g/dL 3.5-5.0 4503178088) ALK PHOS (test code = 95 U/L 34-122 1115757081) ALTv (test code = 15 U/L 5-35 2-6) AST(SGOT) (test code = 20 U/L 13-40 2131347963) eGFR (test code = mL/min/1.73m2 5243313242) CRISTIANE (test code = CRISTIANE) Association of Glomerular Filtration Rate (GFR) and Staging of Kidney Disease* + --+ --+ ------+| GFR (mL/min/1.73 m2) ?| With Kidney Damage ?| ?Without Kidney Damage+ --------+ --------+ +| ?>90 ?| ?Stage one ?| ? Normal ?+ ---+ ---+ -------+| ?60-89 ?| ?Stage two ?| ? Decreased GFR ? + --+ --+ ------+| ?30-59 ?| ?Stage three ?| ? Stage three ? + --+ --+ ------+| ?15-29 ?| ?Stage four ? | ? Stage four ?+ ---+ ---+ -------+| ?<15 (or dialysis) ? ?| ?Stage five ? | ? Stage five ?+ ---+ ---+ -------+ *Each stage assumes the associated GFR level has been in effect for at least three months. ?Stages 1 to 5, with or without kidney disease, indicate chronic kidney disease. Notes: Determination of stages one and two (with eGFR >59mL/min/1.73 m2) requires estimation of kidney damage for at least three months as defined by structural or functional abnormalities of the kidney, manifested by either:Pathological abnormalities or Markers of kidney damage (including abnormalities in the composition of the blood or urine or abnormalities in imaging tests). Lab Interpretation Abnormal (test code = 56808-1) [facility] CampusLIP[facility], [id number] 02:45:50 Test Item Value Reference Range Interpretation Comments LIPASE (test code = 5737909835) 95 U/L 0-220 Lab Interpretation (test code = Normal 41186-8) [facility]usaPTT2021-04-16 02:43:28 Test Item Value Reference Range Interpretation Comments APTT Patient (test See_Comment [Automat ed code = 3173-2) message] The system which generated this result transmitted reference range : 23 - 38 Seconds . The reference range was not used to interpr et this result as normal/abnormal . CRISTIANE (test code = CRISTIANE) The [facility] patient population mean normal value for aPTT is 30 seconds. Lab Interpretation Normal (test code = 60613-3) [facility] CampusCOVID-19 (ID NOW RAPID TESTING)2020-12-21 02:42:53 Test Item Value Reference Range Interpretation Comments SARS-CoV-2 Rapid ID NOW Not Detected Not Detected (test code = 16462-6) CRISTIANE (test code = CRISTIANE) ID NOW COVID-19 Assay is an isothermal nucleic acid amplification test intended for the qualitative detection of nucleic acid from SARS-CoV-2 viral RNA in nasopharyngeal (SUPPLY CH[employer] ASSISTANT) specimens. It is used under Emergency Use Authorization (EUA) by FDA. The limit of detection (LOD) of the assay is 125 Genome Equivalents/mL. A positive result is indicative of the presence of SARS-CoV-2 RNA. ?Clinical correlation with patient history and other diagnostic information is necessary to determine patient infection status. A negative (Not Detected) result does not preclude SARS-CoV-2 infection. In patients with clinical symptoms and other tests that are consistent with SARS-CoV-2 infection, negative results should be treated as presumptive negative and a new specimen should be tested with alternative PCR molecular test. Invalid: Please collect a new specimen for repeat patient testing if clinically indicated. Lab Interpretation Normal (test code = 84592-5) [facility] CampusPROTHROMBIN TIME / [id number] 02:41:31 Test Item Value Reference Range Interpretation Comments PROTIME PATIENT (test See_Comment [Auto mated message] code = 5964-2) The system wh ich generated this result transmitted ref erence range: 12.0 - 1 4.7 Seconds. The re ference range was not u sed to interpret this result as normal/abnor mal. INR (test code = 6301-6) Nor mal INR <1.1; Warfarin Therap eutic range 2.0 to 3. 0 or 2.5 to 3.5, dep ending upon the indica tions. Lab Interpretation (test Normal code = 91845-2) [facility] CampusCB WITH [id number] 02:30:44 Test Item Value Reference Range Interpretation Comments WBC (test code = See_Comment [Automated 7890-2) message] The sy stem which generated this result transmitted reference range : 4.30 - 11.10 10*3/?L. The reference range was not used to interpret this result as normal/abnormal . RBC (test code = See_Comment H [Automated 939-8) message] The sy stem which generated this result transmitted reference range : 3.93 - 5.25 10*6/?L. The reference range was not used to interpret this result as normal/abnormal . HGB (test code = 15.9 g/dL 11.6-15.0 H 718-7) HCT (test code = 46.9 % 35.7-45.2 H 4544-3) MCV (test code = 85.4 fL 80.6-95.5 787-2) MCH (test code = 29.0 pg 25.9-32.8 785-6) MCHC (test code = 33.9 g/dL 31.6-35.1 786-4) RDW-SD (test code = 38.8 fL 39.0-49.9 L 06558-5) RDW-CV (test code = 12.6 % 12.0-15.5 788-0) PLT (test code = See_Comment [Automated 757-3) message] The sy stem which generated this result transmitted reference range : 166 - 358 10*3/ ?L. The reference r rafal was not used to interpret this result as normal/abnormal . MPV (test code = 8.8 fL 9.5-12.9 L 11963-1) NRBC/100 WBC (test See_Comment [Automat ed code = 6646446227) message] The system which generated this result transmitted reference range : 0.0 - 10.0 /100 WBCs. The refer ence range was not u sed to interpret th is result as normal/abnormal . NRBC x10^3 (test code <0.01 See_Comment [Auto mated = 0445676446) message] The s ystem which generated this result transmitted reference range : 10*3/?L. The reference range was not used to interpret this result as normal/abnormal . GRAN MAT (NEUT) % 56.9 % (test code = 770-8) IMM GRAN % (test code 0.40 % = 0712559848) LYMPH % (test code = 35.4 % 736-9) MONO % (test code = 6.5 % 5905-5) EOS % (test code = 0.4 % 713-8) BASO % (test code = 0.4 % 706-2) GRAN MAT x10^3(ANC) 5.87 10*3/uL 1.88-7.09 (test code = 9266929005) IMM GRAN x10^3 (test 0.04 10*3/uL 0.00-0.06 code = 5440003080) LYMPH x10^3 (test code 3.65 10*3/uL 1.32-3.29 H = 731-0) MONO x10^3 (test code 0.67 10*3/uL 0.33-0.92 = 742-7) EOS x10^3 (test code = 0.04 10*3/uL 0.03-0.39 711-2) BASO x10^3 (test code 0.04 10*3/uL 0.01-0.07 = 704-7) Lab Interpretation Abnormal (test code = 36546-1) [facility]"
[2023-06-27] MEDS ORDERED: MECLIZINE HCL 12.5 MG TAB ONE (12:13)
[2023-06-27 12:14] LABS: Lymphocytes % 12.8 % (15.3-44.8); MCV 88.3 fL (80-100); MPV 7.1 fL (7.6-11.3); Platelets 306 thou/uL (152-406); RBC Red Blood Cell Count 4.99 M/uL (3.86-4.86)
[2023-06-27 12:34] LABS: Albumin 3.8 g/dL (3.4-5.0); Bilirubin Direct 0.3 mg/dL (0-0.2); Bilirubin Indirect, Calculated 1.2 mg/dL (0.2-0.8); Bilirubin Total 1.5 mg/dL (0.2-1.0); Magnesium 2.3 mg/dL (1.6-2.4); Potassium 3.9 mEq/L (3.5-5.1); Protein, Total 7.9 g/dL (6.4-8.2); Troponin High Sensitivity 58.9 pg/mL (<58.9)
--- NOTE | 2023-06-27 13:01 | RAD REPORT ---
EXAM DESCRIPTION: CT - Head Brain Wo Cont - 06/27/2023 12:18 pm CLINICAL HISTORY: DIZZINESS COMPARISON: HEAD BRAIN W O CONTRAST dated 11/27/2014; HEAD BRAIN W O CONTRAST dated 01/31/2014 TECHNIQUE: Noncontrast head CT images were obtained without IV contrast. Multiplanar reformats were generated and reviewed. All CT scans are performed using dose optimization technique as appropriate and may include automated exposure control or mA/KV adjustment according to patient size. FINDINGS: No intracranial hemorrhage, mass, or edema. Midline structures are unremarkable. Normal ventricular caliber for age. Stanford-white matter differentiation is preserved, without evidence of acute infarct. No abnormal extra- axial fluid collections. Mastoid air cells and visualized portions of the paranasal sinuses are clear. No acute bony findings. IMPRESSION: No evidence of an acute intracranial process.
--- NOTE | 2023-06-27 13:02 | RAD REPORT ---
[facility] DES[facility] 12[facility]33 pm CLINICAL HISTORY: Dizzy COMPARISON: CHEST SINGLE VIEW dated 09/26/2015; CHEST SINGLE VIEW dated 12/03/2014; CHEST SINGLE VIEW dated 11/27/2014; CHEST PA AND LAT 2 VIEW dated 02/13/2014 TECHNIQUE: Portable AP view of the chest. FINDINGS: The lungs are clear. Hyperinflation and hyperlucency suggestive of COPD. No pneumothorax o r effusion. The cardiomediastinal contours are unremarkable. IMPRESSION: No acute cardiopulmonary process.
--- NOTE | 2023-06-27 17:11 | RAD REPORT ---
EXAM DESCRIPTION: CT - Head angio - 06/27/2023 4:26 pm CLINICAL HISTORY: dizzy COMPARISON: Head Brain Wo Cont dated 06/27/2023; HEAD BRAIN W O CONTRAST dated 11/27/2014; Neck Angio dated 06/27/2023 TECHNIQUE: Axial CT angiography images of the head was performed with multiplanar and maximum intens ity projection reconstructions. Images performed following intravenous administration of 95 mLmL Isov ue 370. All CT scans are performed using dose optimization technique as appropriate and may include automated exposure control or mA/KV adjustment according to patient size. FINDINGS: No evidence of large vessel occlusion. No evidence of aneurysm or dissection flap is detec esa. No flow-limiting stenosis or vascular malformation identified. Antegrade flow is seen in the vertebral arteries. The vertebral arteries are codominant. The visualized dural venous sinuses are grossly patent. Incidentally noted partially empty sella. IMPRESSION: No evidence of large vessel occlusion or flow-limiting stenosis.
--- NOTE | 2023-06-27 17:13 | RAD REPORT ---
EXAM DESCRIPTION: CT - Neck Angio - 06/27/2023 4:25 pm CLINICAL HISTORY: dizzy COMPARISON: CT HEAD CSPINE MPR WO CONTRAST dated 09/26/2015 TECHNIQUE: Axial CT angiography images of the head was performed with multiplanar and maximum intens ity projection reconstructions. Images performed following intravenous administration of 95mL Isovue 370. All CT scans are performed using dose optimization technique as appropriate and may include automated exposure control or mA/KV adjustment according to patient size. Quantification of carotid stenosis, if any, is performed according to NASCET criteria. FINDINGS: A left aortic arch is identified with normal three vessel configuration of the great vesse ls. No significant flow abnormality is seen of the common carotid bilaterally. No significant stenosis is identified involving the cervical segments of both internal carotid arteri es. Normal flow is seen within both vertebral arteries. The right vertebral artery is nondominant and ter minates as the right PICA. IMPRESSION: No significant flow abnormality of the neck vessels is identified. CAROTID STENOSIS REFERENCE USING NASCET CRITERIA: % ICA stenosis = (1 - narrowest ICA diameter/diameter of distal cervical ICA) x 100. Mild - <50% stenosis. Moderate - 50-69% stenosis. Severe - 70-94% stenosis. Near occlusion - 95-99% stenosis. Occluded - 100% stenosis.
--- NOTE | 2023-06-27 17:24 | EDPHYS ---
Physician Documentation [facility] Name: Yvonne Mcqueen Age: 67 yrs Sex: Female : 1955 Arrival Date: 06/27/2023 Time: 11:27 Bed 15 Private MD: ED Physician Khari Muir HPI: 06/27 13:21 This 67 yrs old Female presents to ER via Ambulatory with complaints of kdr Dizziness. 13:21 Patient states that she woke around 2 AM and was dizzy. She had difficulty standing. kdr She tried to get up and had some difficulty. She also noted that her vision was gone. It is unclear exactly how long the symptoms lasted but they persisted and and were intermittent since onset. Currently in the ED she complains of mild frontal headache perhaps a little more on the right than the left. She currently denies any dizziness. She is not in any acute distress. She is talking appropriately and interacting with daughter and staff. Onset: The symptoms/episode began/occurred suddenly, this morning. Severity of symptoms: At their worst the symptoms were severe incapacitating this morning, in the emergency department the symptoms have improved markedly, Patient only complains of a very mild minor 4 out of 10 headache currently. She has no dizziness currently.. The patient has not experienced similar symptoms in the past. The patient has not recently seen a physician. Historical: - Allergies: 11:33 No Known Drug Allergies; ll1 - Immunization history:: Adult Immunizations up to date. - Social history:: Smoking status: Patient denies any tobacco usage or history of. ROS: 13:21 Constitutional: Negative for fever, chills, and weight loss, Eyes: Negative for injury, kdr pain, redness, and discharge, ENT: Negative for injury, pain, and discharge, Neck: Negative for injury, pain, and swelling, Cardiovascular: Negative for chest pain, palpitations, and edema, Respiratory: Negative for shortness of breath, cough, wheezing, and pleuritic chest pain, Abdomen/GI: Negative for abdominal pain, nausea, vomiting, diarrhea, and constipation, Back: Negative for injury and pain, : Negative for injury, bleeding, discharge, and swelling, MS/Extremity: Negative for injury and deformity, Skin: Negative for injury, rash, and discoloration, Psych: Negative for depression, anxiety, suicide ideation, homicidal ideation, and hallucinations, Allergy/Immunology: Negative for hives, rash, and allergies, Endocrine: Negative for neck swelling, polydipsia, polyuria, polyphagia, and marked weight changes, Hematologic/Lymphatic: Negative for swollen nodes, abnormal bleeding, and unusual bruising, 13:21 Neuro: Positive for dizziness, headache, Negative for numbness, seizure activity, speech changes, syncope, near syncope, tinnitus, tremor, visual changes, Exam: 13:21 Constitutional: This is a well developed, well nourished patient who is awake, alert, kdr and in no acute distress. Head/Face: Normocephalic, atraumatic. Eyes: Pupils equal round and reactive to light, extra-ocular motions intact. Lids and lashes normal. Conjunctiva and sclera are non-icteric and not injected. Cornea within normal limits. Periorbital areas with no swelling, redness, or edema. Neck: Trachea midline, no thyromegaly or masses palpated, and no cervical lymphadenopathy. Supple, full range of motion without nuchal rigidity, or vertebral point tenderness. No Meningismus. Chest/axilla: Normal chest wall appearance and motion. Nontender with no deformity. No lesions are appreciated. Cardiovascular: Regular rate and rhythm with a normal S1 and S2. No gallops, murmurs, or rubs. Normal PMI, no JVD. No pulse deficits. Respiratory: Lungs have equal breath sounds bilaterally, clear to auscultation and percussion. No rales, rhonchi or wheezes noted. No increased work of breathing, no retractions or nasal flaring. Abdomen/GI: Soft, non-tender, with normal bowel sounds. No distension or tympany. No guarding or rebound. No evidence of tenderness throughout. Back: No spinal tenderness. No costovertebral tenderness. Full range of motion. Skin: Warm, dry with normal turgor. Normal color with no rashes, no lesions, and no evidence of cellulitis. MS/ Extremity: Pulses equal, no cyanosis. Neurovascular intact. Full, normal range of motion. Neuro: Awake and alert, GCS 15, oriented to person, place, time, and situation. Cranial nerves II-XII grossly intact. Motor strength 5/5 in all extremities. Sensory grossly intact. Cerebellar exam normal. Normal gait. Psych: Awake, alert, with orientation to person, place and time. Behavior, mood, and affect are within normal limits. Vital Signs: 11:52 BP 137 / 70; Pulse 76; Resp 18; Temp 97.5; Pulse Ox 98% on R/A; Weight 70.31 kg; Height ph 5 ft. 5 in. ; Pain 5/10; 12:59 BP 131 / 78; Pulse 72; Resp 18; Pulse Ox 99% on R/A; ph 13:40 BP 130 / 61; Pulse 74; Resp 16; Pulse Ox 100% on R/A; ph 14:04 BP 121 / 59; Pulse 69; Resp 18; Pulse Ox 95% on R/A; ph 14:48 BP 117 / 68; Pulse 70; Resp 18; Pulse Ox 97% on R/A; ph 15:33 BP 118 / 72; Pulse 78; Resp 16; Pulse Ox 98% on R/A; ph 17:10 BP 110 / 67; Pulse 71; Resp 18; Pulse Ox 98% on R/A; ph 18:00 BP 104 / 61; Pulse 74; Resp 16; Pulse Ox 99% on R/A; ph 11:52 Body Mass Index 25.79 (70.31 kg, 165.1 cm) ph 11:52 Pain Scale: Adult ph [place] Coma Score: 18:00 Eye Response: spontaneous(4). Motor Response: obeys commands(6). Verbal Response: ph oriented(5). Total: 15. MDM: 13:21 Data reviewed: vital signs, nurses notes, lab test result(s), radiologic studies. kdr 17:23 Patient medically screened. kdr 06/27 11:49 Order name: Basic Metabolic Panel; Complete Time: 13:56 kdr 06/27 11:49 Order name: CBC with Diff; Complete Time: 13:56 kdr 06/27 11:49 Order name: LFT's; Complete Time: 13:56 kdr 06/27 11:49 Order name: Magnesium; Complete Time: 13:56 kdr 06/27 11:49 Order name: NT PRO-BNP; Complete Time: 13:56 kdr 06/27 11:49 Order name: Troponin HS; Complete Time: 13:56 kdr 06/27 11:49 Order name: XRAY Chest (1 view); Complete Time: 13:56 kdr 06/27 11:49 Order name: CT Head Brain wo Cont; Complete Time: 13:56 kdr 06/27 14:12 Order name: CT Neck Angio; Complete Time: 17:15 kdr 06/27 14:43 Order name: Head angio; Complete Time: 17:15 EDMS 06/27 11:49 Order name: EKG; Complete Time: 11:50 kdr 06/27 11:49 Order name: Cardiac monitoring; Complete Time: 12:15 kdr 06/27 11:49 Order name: EKG - Nurse/Tech; Complete Time: 12:15 kdr 06/27 11:49 Order name: IV Saline Lock; Complete Time: 12:15 kdr 06/27 11:49 Order name: Labs collected and sent; Complete Time: 12:16 kdr 06/27 11:49 Order name: O2 Per Protocol; Complete Time: 12:16 kdr 06/27 11:49 Order name: O2 Sat Monitoring; Complete Time: 12:16 kdr Administered Medications: 12:14 Drug: Meclizine PO 25 mg PO once Route: PO; ph 14:47 Follow up: Response: No adverse reaction ph Disposition Summary: 06/27/23 17:23 Transfer Ordered Notes: Transfer Location: [facility] kdr Reason: Higher level of care kdr Condition: Fair kdr Problem: new kdr Symptoms: are resolved kdr Accepting Physician: daxa(06/27/23 19:12) ph Diagnosis - Dizziness and giddiness kdr - Other visual disturbances - Transient blindness kdr - Transient cerebral ischemic attack, unspecified kdr Forms: - Medication Reconciliation Form kdr - SBAR form kdr Signatures: Dispatcher [employer] EDKhari Vidal MD MD kdr Cassie Padgett RN RN ph Mikayla Lopez RN RN ll1 Corrections: (The following items were deleted from the chart) 17:24 17:23 sdf kdr kdr 19:12 17:24 sdf kdr ph
--- NOTE | 2023-06-27 17:24 | ER ---
Nurse's Notes [facility] Name: Yvonne Mcqueen Age: 67 yrs Sex: Female : 1955 Arrival Date: 06/27/2023 Time: 11:27 Bed 15 Private MD: Diagnosis: Dizziness and giddiness;Other visual disturbances-Transient blindness;Transient cerebral ischemic attack, unspecified Presentation: 06/27 11:52 Chief complaint: Patient states: Headache and dizziness that started at 0200 this morning, states that dizziness is intermittent, worse when she lies down, denies N/V, also reports vision loss when symptoms began, states that vision is normal now. Coronavirus screen: Vaccine status: Patient reports receiving the 2nd dose of the covid vaccine. Ebola Screen: No symptoms or risks identified at this time. Initial Sepsis Screen: Does the patient meet any 2 criteria? No. Patient's initial sepsis screen is negative. Does the patient have a suspected source of infection? No. Patient's initial sepsis screen is negative. Risk Assessment: Do you want to hurt yourself or someone else? Patient reports no desire to harm self or others. Onset of symptoms was June 27, 2023. 11:52 Method Of Arrival: Ambulatory ph 11:52 Acuity: TINA 3 ph Triage Assessment: 11:55 General: Appears in no apparent distress. Behavior is calm, cooperative, appropriate ph for age. Pain: Complains of pain in forehead. Neuro: Level of Consciousness is awake, alert, obeys commands, Oriented to person, place, time, situation, Reports dizziness, headache frontal area. Cardiovascular: Capillary refill < 3 seconds in bilateral fingers. Respiratory: Airway is patent Respiratory effort is even, unlabored. GI: Patient currently denies abdominal pain, nausea, vomiting. : No signs and/or symptoms were reported regarding the genitourinary system. Derm: Skin is pink, warm \T\ dry. Musculoskeletal: Circulation, motion, and sensation intact. Range of motion: intact in all extremities. Historical: - Allergies: 11:33 No Known Drug Allergies; ll1 - Immunization history:: Adult Immunizations up to date. - Social history:: Smoking status: Patient denies any tobacco usage or history of. Screenin:55 [facility] ED Fall Risk Assessment (Adult) History of falling in the last 3 months, ph including since admission No falls in past 3 months (0 pts) Confusion or Disorientation No (0 pts) Intoxicated or Sedated No (0 pts) Impaired Gait No (0 pts) Mobility Assist Device Used No (0 pt) Altered Elimination No (0 pt) Score/Fall Risk Level 0 - 2 = Low Risk Oriented to surroundings, Maintained a safe environment, Provided non-skid footwear, Hourly rounding (assess needs \T\ fall precautionary measures) done. Abuse screen: Denies threats or abuse. Denies injuries from another. Nutritional screening: No deficits noted. Tuberculosis screening: No symptoms or risk factors identified. Assessment: 12:16 General: SEE TRIAGE ASSESSMENT. ph 13:30 Reassessment: Patient appears in no apparent distress at this time. Patient and/or ph family updated on plan of care and expected duration. Pain level reassessed. Patient is alert, oriented x 3, equal unlabored respirations, skin warm/dry/pink. 14:30 Reassessment: Patient appears in no apparent distress at this time. Patient and/or ph family updated on plan of care and expected duration. Pain level reassessed. Patient is alert, oriented x 3, equal unlabored respirations, skin warm/dry/pink. 15:33 Reassessment: Patient appears in no apparent distress at this time. Patient and/or ph family updated on plan of care and expected duration. Pain level reassessed. Patient is alert, oriented x 3, equal unlabored respirations, skin warm/dry/pink. 17:00 Reassessment: Patient appears in no apparent distress at this time. Patient and/or ph family updated on plan of care and expected duration. Pain level reassessed. Patient is alert, oriented x 3, equal unlabored respirations, skin warm/dry/pink. Pt ambulatory to restroom, continues to report intermittent dizziness. 19:03 Reassessment: Patient appears in no apparent distress at this time. Patient and/or ph family updated on plan of care and expected duration. Pain level reassessed. Patient is alert, oriented x 3, equal unlabored respirations, skin warm/dry/pink. Vital Signs: 11:52 BP 137 / 70; Pulse 76; Resp 18; Temp 97.5; Pulse Ox 98% on R/A; Weight 70.31 kg; Height ph 5 ft. 5 in. ; Pain 5/10; 12:59 BP 131 / 78; Pulse 72; Resp 18; Pulse Ox 99% on R/A; ph 13:40 BP 130 / 61; Pulse 74; Resp 16; Pulse Ox 100% on R/A; ph 14:04 BP 121 / 59; Pulse 69; Resp 18; Pulse Ox 95% on R/A; ph 14:48 BP 117 / 68; Pulse 70; Resp 18; Pulse Ox 97% on R/A; ph 15:33 BP 118 / 72; Pulse 78; Resp 16; Pulse Ox 98% on R/A; ph 17:10 BP 110 / 67; Pulse 71; Resp 18; Pulse Ox 98% on R/A; ph 18:00 BP 104 / 61; Pulse 74; Resp 16; Pulse Ox 99% on R/A; ph 11:52 Body Mass Index 25.79 (70.31 kg, 165.1 cm) ph 11:52 Pain Scale: Adult ph Dustin Coma Score: 18:00 Eye Response: spontaneous(4). Motor Response: obeys commands(6). Verbal Response: ph oriented(5). Total: 15. ED Course: 11:30 Patient arrived in ED. ts1 11:33 Arm band placed on Patient placed in an exam room, on a stretcher. ll1 11:34 Cassie Padgett, RN is Primary Nurse. ph 11:38 Khari Muir MD is Attending Physician. kdr 11:55 Triage completed. ph 11:57 Patient has correct armband on for positive identification. Placed in gown. Bed in low ph position. Call light in reach. Side rails up X2. Client placed on continuous cardiac and pulse oximetry monitoring. NIBP monitoring applied. Door closed. Noise minimized. Warm blanket given. 12:16 Initial lab(s) drawn, by me, sent to lab. EKG done, by ED staff, reviewed by Khari Muir MD. Inserted saline lock: 22 gauge in right antecubital area, using aseptic technique. Blood collected. 12:17 Basic Metabolic Panel Sent. ph 12:17 LFT's Sent. ph 12:17 Magnesium Sent. ph 12:17 NT PRO-BNP Sent. ph 12:17 Troponin HS Sent. ph 12:20 CT Head Brain wo Cont In Process Unspecified. EDMS 12:34 XRAY Chest (1 view) In Process Unspecified. EDMS 13:38 EKG done, by ED staff. sm8 16:27 CT Neck Angio In Process Unspecified. EDMS 16:27 Head angio In Process Unspecified. EDMS 19:11 No provider procedures requiring assistance completed. Patient transferred, IV remains ph in place. Administered Medications: 12:14 Drug: Meclizine PO 25 mg PO once Route: PO; ph 14:47 Follow up: Response: No adverse reaction ph Medication: 11:56 VIS not applicable for this client. ph Outcome: 17:23 ER care complete, transfer ordered by . kdr 19:11 Transferred by ground EMS to [facility], Transfer form completed. ph X-rays sent w/ patient. 19:11 Condition: stable 19:11 Instructed on the need for transfer, 19:12 Patient left the ED. ph Signatures: Dispatcher [employer] EDMS Khari Muir MD MD kdr Cassie Padgett RN RN ph Lewis, Lynsay, RN RN 1 [facility] Ashley Gagnon 8
--- NOTE | 2023-06-29 18:08 | EKG ---
Test Date: 2023-06-27 Test Time: 12:07:51 Cnc Manager: MIRA MEASUREMENT RESULTS: Intervals: Rate: 69 MT: 158 QRSD: 82 QT: 368 QTc: 394 [place]: P: 59 MT: 158 QRS: -38 T: 17 INTERPRETIVE STATEMENTS: Normal sinus rhythm Left axis deviation Low voltage QRS Cannot rule out Anterior infarct, age undetermined Abnormal ECG Compared to ECG 09/26/2015 19:50:16 Low QRS voltage now present Sinus bradycardia no longer present Myocardial infarct finding still present Electronically Signed On 06-29-23 18:06:23 CDT by Tano Retana
== END 2023-06-27 19:12 | disposition short-term general hospital (02) ==
LOC: ER 11:27
DX: G45.9 Transient cerebral ischemic attack, unspecified (principal); H53.123 Transient visual loss, bilateral
CPT/HCPCS: 93005; 85025; 80048; 36415; 83735; 80076; 84484; 83880; 70450; 70496; 70498; 71045; 99285; Q9967; J8597